=== PATIENT | male | born 1945 | race Caucasian/White ===

== ENCOUNTER 2016-05-05 00:45 | Emergency (ER) | payer MEDICARE ==
[~2016-05-05] VITALS: Ht 185.4 cm; Wt 86.4 kg
[2016-05-05 00:46] VITALS: BP 140/77; PULSE 66; RESP 16; O2SAT 98
--- NOTE | 2016-05-05 02:30 | ED.REPORT ---
HPI-Extremity Problem Lower Date of Service May 05, 2016 ED Provider: Wilian Dennis MD History of Present Illness: Dylan Weiss is a 70 year old ariane with a PMH of DM2 with peripheral neuropathy who presents with a 1 day history of new onset left foot pain. He states that he was wearing his motorcycle boots for an extended period earlier today which is atypical for him, and when he switched back to his normal shoes he began feeling a new sharp pain in between his 2nd and 3rd toes around the ball of his foot. He denies trauma, any radiation of pain to the leg, or coolness or paresthesia in the afflicted foot. Nursing Notes Stated Complaint: L FOOT SWELLING/PAIN Chief Complaint: Extremity Trauma Nursing Notes Reviewed: Yes Allergies: Coded Allergies: No Known Allergies (Unverified , 05/05/16) General Time Seen by MD: 01:30 Chief Complaint Other (Foot pain left) Hx Obtained From: Patient Arrived By: Walk-in Onset Occurred: 5 - 8 hours ago Symptom Duration: Since onset Location: : Foot left Quality: Aching, Sharp Severity: Current: Mild Severity: Maximum: Moderate Relieved by: Flexion Recent Healthcare: No recent doctor visit Similar Sx Previous: No Past Medical History Past Medical History DM2 with peripheral neuropathy Review of Systems Musculoskeletal: Reports: Extremity pain Complete sys rev & neg: except as marked. Physical Exam Physical Exam Notes: Gen: A/O x3 pleasant cooperative man in NAD Neck: Supple, full ROM HEENT: PERRL, EOMI, mucous membranes moist CV: RRR, no murmurs rubs or gallops Resp: Lungs CTA BL, no wheezing rales or rhonchi Extr: Left metal cut off saw tender to palpation and compression in between 2nd and 3rd toes on both plantar and dorsal surface of foot, mild swelling of 2nd and 3rd toes which are restricted in all planes or motion, No point tenderness extending to metatarsals or ankle, neurovascularly intact Neuro: Sensation intact and equal BL, No focal neurologic deficit Initial Vital Signs Vital Signs (First) Date Time Temp Pulse Resp B/P Pulse Ox O2 Delivery O2 Flow Rate FiO2 05/05/16 00:46 36.0 66 16 140/77 98 Room Air Initial VS: Reviewed, Vital signs normal Interpretation & Diagnostics X-Ray Interpretation X-Ray Ordered: Foot left Interpretation / Wet Read by: Wet read ED physician Interpretation: Normal exam Re-Eval/Medical Decision Med Decision/Clinical Course Patient with negative xray, and exam suggestive of Allison's Neuroma. Patient encouraged to rest and ice the afflicted foot and use NSAIDs as needed for pain. He was further instructed to follow up with his primary care provider for further evaluation perhaps including ultrasound to identify possible Allison's Neuroma. Counseled Regarding: Diagnosis, Lab results, Need for follow-up, When/why to return to ED Discharge & Departure Impression: Primary Impression: Allison neuroma Laterality: left Qualified Code: G57.62 - Lesion of plantar nerve, left lower limb Disposition: Home Patient Instructions: Diabetic Foot Care (ED) Additional Instructions: Based upon your exam and imaging it is most likely you have a Allison's neuroma or a mild case of gout. A radiologist will be over reading our xray interpretation in the morning and we will inform you if they detect any findings we could not. I recommend you follow up with your primary care doctor for further evaluation including ultrasound of the foot. Referrals: Jem Sanchez MD (PCP) Attending Statement The patient was seen and examined together with Dr. James Hawkins and I agree with the history, exam and plan as outlined in the note above. copies to: Jem Sanchez MD, David E DO May 05, 2016 02:30 Wilian Dennis MD May 05, 2016 06:29
--- NOTE | 2016-05-05 09:25 | DRSVH ---
PROCEDURE: X-RAY LEFT FOOT COMPLETE, MINIMUM THREE VIEWS ([id number]) INDICATIONS: Left foot pain TECHNIQUE: 3 views of the foot were acquired. COMPARISON: None. FINDINGS: Bones: No fractures or dislocations. No suspicious bony lesions. Mild soft tissue swelling adjacen t to the first tarsometatarsal joint likely related to developing bunion. Soft tissues: No tibiotalar joint effusion. Achilles tendon appears normal. IMPRESSION: No displaced fracture seen. If there is continued pain, followup exam or additional jocelyne ging such as MRI or CT could be performed for further assessment. Dictated by: Patrice Madrigal RRA Interpreted: Len Chaidez MD on 05/05/2016 at 9:23 Transcribed by: ELLIS on 05/05/2016 at 9:25 Approved by: Len Chaidez M.D. on 05/05/2016 at 17:06
== END 2016-05-05 02:39 | disposition home or self-care (01) ==
LOC: SED 00:45
DX: G57.62 Lesion of plantar nerve, left lower limb (principal); E11.40 Type 2 diabetes mellitus with diabetic neuropathy, unspecified